=== PATIENT | female | born 1950 | race Caucasian/White ===

== ENCOUNTER 2016-03-20 00:58 | Emergency (ER) | payer MEDICAID ==
[~2016-03-20] VITALS: Ht 147.3 cm; Wt 65.5 kg
[2016-03-20 01:16] VITALS: Ht 147.3 cm; Wt 65.5 kg
[2016-03-20] MEDS ORDERED: ALBUTEROL 0.5% (NEB) 2.5 MG/0.5 ML AMP INH STA (03:23)
[2016-03-20] MEDS ORDERED: SOD CHLORIDE 0.9% 1,000 ML IV STA (03:23)
[2016-03-20 03:52] LABS: BASOPHIL # 0.1 10^3/ul (0.0-0.1); BASOPHILS % 0.7 % (0.0-2.0); EOSINOPHILS # 0.6 10^3/ul (0.0-0.5); EOSINOPHILS % 5.7 % (0.0-7.0); HEMATOCRIT 41.3 % (37.0-47.0); HEMOGLOBIN 13.4 g/dl (12.0-16.0); LYMPHOCYTES # 4.1 10^3/ul (0.8-2.9); LYMPHOCYTES % 36.6 % (15.0-51.0); MEAN CORPUSCULAR HEMOGLOBIN 29.1 pg (29.0-33.0); MEAN CORPUSCULAR HGB CONC 32.4 g/dl (32.0-37.0); MEAN CORPUSCULAR VOLUME 89.8 fl (82.0-101.0); MEAN PLATELET VOLUME 11.1 fl (7.4-10.4); MONOCYTE # 0.8 10^3/ul (0.3-0.9); NEUTROPHIL # 5.5 10^3/ul (1.6-7.5); NEUTROPHILS % 49.3 % (39.0-77.0); PLATELET COUNT 289 10^3/UL (140-415); RED CELL DISTRIBUTION WIDTH 13.2 % (11.5-14.5); WHITE BLOOD COUNT 11.1 10^3/ul (4.8-10.8)
[2016-03-20 04:10] LABS: ALBUMIN 3.6 g/dl (3.3-4.9); CHLORIDE 105 mmol/L (97-110)
[2016-03-20 04:11] LABS: POTASSIUM 4.2 mmol/L (3.5-5.1); SODIUM 145 mmol/L (135-144)
[2016-03-20 04:13] LABS: ALKALINE PHOSPHATASE 199 IU/L (42-121); ANION GAP 18 (8-16); ASPARTATE AMINO TRANSFERASE 27 IU/L (15-46); BILIRUBIN,INDIRECT 0.1 mg/dl (0-1.1); BILIRUBIN,TOTAL 0.1 mg/dl (0.2-1.3); BLOOD UREA NITROGEN 17 mg/dl (7-20); CARBON DIOXIDE 26 mmol/L (21-31); CREATININE 0.74 mg/dl (0.44-1.00); TOTAL PROTEIN 7.6 g/dl (6.1-8.1)
[2016-03-20 04:14] LABS: ALANINE AMINOTRANSFERASE 39 IU/L (13-69); CALCIUM 9.1 mg/dl (8.4-10.2); GLUCOSE 234 mg/dl (70-220)
[2016-03-20] MEDS ORDERED: CEFTRIAXONE 1 GM/50 ML (PMX) 50 ML IVPB ONE (04:30)
[2016-03-20] MEDS ORDERED: AZITHROMYCIN 500MG/NS (PMX) 250 ML IVPB ONE (04:30)
[2016-03-20 04:31] LABS: TROPONIN-I < 0.012 ng/ml (0.00-0.12)
[2016-03-20] MEDS ORDERED: ALBU8.5H3 INH (05:00)
[2016-03-20] MEDS ORDERED: AZIT500T5 PO (05:00)
[2016-03-20] MEDS ORDERED: IBUP400T22 PO (05:00)
--- NOTE | 2016-03-20 05:04 | ERD ---
ER Documentation Chief Complaint Date/Time DATE: 03/20/16 TIME: 05:03 Chief Complaint COUGH X 1 WEEK. WORSE TODAY, SEEN PMD TODAY FOR SAME HPI 65-year-old woman brought in by daughter with complaints of cough 1 week. She has had tactile fevers as well no chest pain, no calf or leg swelling, no vomiting or diarrhea, no recent antibiotic use, no headache or blurry vision, no recent travel or sick contacts. ROS All systems reviewed and are negative except as per history of present illness. Medications Home Meds Active Scripts Albuterol Sulfate* (Proair HFA*) 8.5 Gm Hfa.aer.ad, 2 PUFF INH Q6H Y for COUGH, #1 INHALER Prov:DEBBIE VILLASENOR MD 03/20/16 Ibuprofen* (Ibuprofen*) 400 Mg Tablet, 400 MG PO TID for FEVER, #30 TAB Prov:DEBBIE VILLASENOR MD 03/20/16 Azithromycin* (Azithromycin*) 500 Mg Tablet, 500 MG PO DAILY, #6 TAB Prov:DEBBIE VILLASENOR MD 03/20/16 Allergies Allergies: Coded Allergies: No Known Drug Allergies (Verified Allergy, Unknown, 03/20/16) PMhx/Soc Hypertension History of Surgery: Yes (uterus removed) Anesthesia Reaction: No Hx Neurological Disorder: No Hx Respiratory Disorders: No Hx Cardiac Disorders: Yes (HTN, high cholesterol) Hx Psychiatric Problems: No Hx Miscellaneous Medical Probl: Yes (DM type 2) Hx Alcohol Use: No Hx Substance Use: No Hx Tobacco Use: No Smoking Status: Never smoker FmHx Family History: No diabetes Physical Exam Vitals Vital Signs Date Time Temp Pulse Resp B/P Pulse Ox O2 Delivery O2 Flow Rate FiO2 03/20/16 06:04 104 21 124/59 94 Room Air 03/20/16 03:35 87 22 100 21 03/20/16 02:44 83 22 156/71 97 Room Air 03/20/16 01:16 98.4 85 20 185/81 96 Physical Exam GENERAL: Well-developed, well-nourished, well-hydrated, in no apparent distress , looks nontoxic in appearance HEENT: Moist mucous membranes, positive nasal congestion, pink conjunctiva, no cervical spine tenderness or step-off deformities, no goiter, no jaundice or icterus, extraocular movements intact without pain. No submandibular induration , and no pharyngeal erythema NEURO: Alert and oriented 3, cranial nerves II through XII intact bilaterally, pupils equal round reactive to light, no focal deficits or facial asymmetry, sensation intact distally Strength 5/5 in upper and lower extremities bilaterally CARDIAC: Regular rate and rhythm, no murmurs rubs or gallops LUNGS: Clear bilaterally no wheezing crackles or stridor ABDOMEN: Soft nontender, no guarding, no rigidity, no rebound, no psoas sign no obturator sign. Normoactive bowel sounds SKIN: Warm and dry to touch, no abrasions, contusions, or hematomas, no lacerations, no ecchymosis, no target lesions, and without ulcers EXTREMITIES: No clubbing cyanosis or edema, calves are bilaterally symmetrical, no Homans sign, no popliteal cord sign. Distal pulses equal and bilateral PSYCH: Normal affect without agitation or irritability Result Diagram: 03/20/1625603/20/167 Results 24 hrs Laboratory Tests Test 03/20/16 02:57 Alanine Aminotransferase (ALT/SGPT) 39IU/L Albumin 3.6g/dl Albumin/Globulin Ratio 0.90 Alkaline Phosphatase 199IU/L Anion Gap 18 Aspartate Amino Transf (AST/SGOT) 27IU/L Basophils # 0.110^3/ul Basophils % 0.7% Blood Urea Nitrogen 17mg/dl Calcium Level 9.1mg/dl Carbon Dioxide Level 26mmol/L Chloride Level 105mmol/L Creatinine 0.74mg/dl Direct Bilirubin 0.00mg/dl Eosinophils # 0.610^3/ul Eosinophils % 5.7% Globulin 4.00g/dl Glucose Level 234mg/dl Hematocrit 41.3% Hemoglobin 13.4g/dl Indirect Bilirubin 0.1mg/dl Lipase 74U/L Lymphocytes # 4.110^3/ul Lymphocytes % 36.6% Mean Corpuscular Hemoglobin 29.1pg Mean Corpuscular Hemoglobin Concent 32.4g/dl Mean Corpuscular Volume 89.8fl Mean Platelet Volume 11.1fl Monocytes # 0.810^3/ul Monocytes % 7.0% Neutrophils # 5.510^3/ul Neutrophils % 49.3% Nucleated Red Blood Cells # 0.010^3/ul Nucleated Red Blood Cells % 0.0/100WBC Platelet Count 19792^3/UL Potassium Level 4.2mmol/L Red Blood Count 4.6010^6/ul Red Cell Distribution Width 13.2% Sodium Level 145mmol/L Total Bilirubin 0.1mg/dl Total Protein 7.6g/dl Troponin I < 0.012ng/ml White Blood Count 11.110^3/ul Current Medications Medications (Trade) Dose Ordered Sig/Carla Route PRN Reason Start Time Stop Time Status Last Admin Dose Admin Albuterol 10 mg 10 mg ONCE STAT INH 03/20/16 03:23 03/20/16 03:24 03/20/16 03:55 Sodium Chloride 1,000 ml @ 1,000 mls/hr Q1H STAT IV 03/20/16 03:23 03/20/16 04:22 03/20/16 03:51 Ceftriaxone Sodium 50 ml @ 100 mls/hr ONCE ONCE IVPB 03/20/16 04:30 03/20/16 04:59 03/20/16 04:26 Azithromycin (Zithromax 500mg/ NS (Pmx)) 250 ml @ 250 mls/hr ONCE ONCE IVPB 03/20/16 04:30 03/20/16 05:29 03/20/16 04:40 Procedures/MDM IV line was established patient was placed on front desk monitor rhythm strip revealed a sinus rhythm at about 80 bpm with upright P and T waves. Patient was afebrile. EKG performed, read by me: 85 bpm, normal sinus rhythm, normal axis, no acute ST segment changes, narrow QRS complex, with good R-wave progression in precordial leads. I administered 1 L normal saline intravenously and albuterol 10 mg via nebulizer for cough with good response. Also administered ceftriaxone 1 g IV and azithromycin 500 mg IV. One view chest x-ray performed, read by me revealed cardiomegaly and a left lower lobe infiltrate, no pneumothorax, no end of the diaphragm. CBC and electrolytes were normal, liver function tests were normal, troponin was negative. CURB 65 Severity Score = 0. Placing the patient in a low risk group with a 30 day mortality rate of about 0.6. Therefore outpatient management is recommended. Differential diagnoses considered, included but not limited to acute coronary syndrome, pulmonary embolism, aortic dissection, abdominal aortic aneurysm, sepsis, stroke, meningitis, encephalitis, pneumonia, appendicitis, cholecystitis , bowel obstruction, pyelonephritis, nephrolithiasis, cystitis, as well as metabolic, hematologic, and electrolyte abnormalities. As well as abscess, cellulitis, fractures, and dislocations. Patient feels much better at this time, and vital signs are normal, symptoms have improved. I did give strict instructions to return to the ED if symptoms continue or worsen, patient will otherwise follow-up with primary care physician. Patient understood instructions and agreed to plan. Departure Diagnosis: Primary Impression: Pneumonia Pneumonia type: due to unspecified organism Laterality: left Lung location : lower lobe of lung Qualified Code: J18.9 - Pneumonia of left lower lobe due to infectious organism Condition: Good Patient Instructions: Pneumonia (Adult) DEBBIE VILLASENOR MD Mar 20, 2016 05:04
--- NOTE | 2016-03-20 05:26 | RADRPT ---
PROCEDURE: XR Chest. CLINICAL INDICATION: Abdominal Pain TECHNIQUE: Portable single view of the chest COMPARISON: None. FINDINGS: Shallow lung inflation accentuates the heart size but there is moderate enlargement of the cardioper icardial silhouette. Increased biapical density may in part be due to positioning. No focal consol idation or pleural effusion is seen. Mild pulmonary vascular congestion. IMPRESSION: Enlarged cardiopericardial silhouette. Increased opacity at the lung apices may in part be due to p ositioning. PA and lateral views are suggested when the patient is able to have this done. RPTAT: [facility] Physician Brionna Date Time Electronically viewed and signed by Namita Medeiros Physician on 03/20/2016 05:26 NITIN/
[2016-03-20 06:04] VITALS: BP 124/59; PULSE 104; RESP 21
== END 2016-03-20 06:04 | disposition home or self-care (01) ==
LOC: E/R 00:58
DX: J18.9 Pneumonia, unspecified organism (principal); I10 Essential (primary) hypertension; E11.9 Type 2 diabetes mellitus without complications
CPT/HCPCS: 71010; 80053; 83690; 84484; 85025; 87400; 94644; J0456; J0696; J7030; Z7610; 36415; 93005; 96374; 96375

== ENCOUNTER 2017-11-15 18:09 | Emergency (ER) | END 2017-11-16 00:22 | disposition home or self-care (01) ==

== ENCOUNTER 2017-11-17 00:23 | Emergency (ER) | END 2017-11-17 07:35 | disposition home or self-care (01) ==

== ENCOUNTER 2017-12-11 20:28 | Emergency (ER) | END 2017-12-12 00:14 | disposition home or self-care (01) ==

== ENCOUNTER 2018-07-13 22:14 | Emergency (ER) | payer MEDICAID, OTHER ==
[~2018-07-13] VITALS: Wt 64.5 kg
[~2018-07-13 22:14] MED LIST: ACYC800T5 PO; CYCL10TA7 PO; IBUP-1561 PO; PRED20TA PO
[2018-07-13 22:39] VITALS: PULSE 87; RESP 18
[2018-07-14] MEDS ORDERED: KETOROLAC 15 MG INJ IM STA (01:01)
[2018-07-14] MEDS ORDERED: IBUP-1561 PO (01:12)
[2018-07-14] MEDS ORDERED: AMOX500C2 PO (01:12)
[2018-07-14] MEDS ORDERED: AMOXICILLIN 500 MG CAP PO ONE (01:30)
[2018-07-14 01:36] VITALS: BP 152/87
--- NOTE | 2018-07-14 03:55 | ERD ---
ER Documentation Chief Complaint Chief Complaint left lower toothache x 2 weeks HPI 67-year-old female presenting to the emergency department complaining of 9/10, constant, left lower molar pain for the past 10 days. She denies any fevers, chills, facial swelling, facial redness, or other symptoms. She has not been able to follow-up with her dentist. No other symptoms reported currently. ROS All systems reviewed and are negative except as per history of present illness. Medications Home Meds Active Scripts Ibuprofen* (Motrin*) 400 Mg Tab, 400 MG PO Q6, #30 TAB Prov:COLLEEN MENDOZA PA-C 07/14/18 Amoxicillin* (Amoxicillin*) 500 Mg Cap, 500 MG PO TID for 10 Days, CAP Prov:COLLEEN MENDOZA PA-C 07/14/18 Prednisone* (Prednisone*) 20 Mg Tab, 60 MG PO DAILY for 5 Days, TAB Prov:ELGIN SILVESTRE DO 11/17/17 Acyclovir* (Zovirax*) 800 Mg Tablet, 800 MG PO 5 TIMES DAILY for 7 Days, TAB Prov:ELGIN SILVESTRE DO 11/17/17 Cyclobenzaprine Hcl* (Cyclobenzaprine Hcl*) 10 Mg Tablet, 10 MG PO TID, #15 TAB Prov:COLLEEN MENDOZA PA-C 11/15/17 Ibuprofen* (Motrin*) 400 Mg Tab, 400 MG PO Q6, #30 TAB Prov:COLLEEN MENDOZA PA-C 11/15/17 Allergies Allergies: Coded Allergies: No Known Drug Allergies (Verified Allergy, Unknown, 03/20/16) PMhx/Soc History of Surgery: No Anesthesia Reaction: No Hx Neurological Disorder: Yes (stroke?) Hx Respiratory Disorders: No Hx Cardiac Disorders: Yes (HTN) Hx Psychiatric Problems: No Hx Miscellaneous Medical Probl: No Hx Alcohol Use: No Hx Substance Use: No Hx Tobacco Use: No Smoking Status: Never smoker FmHx Family History: No diabetes Physical Exam Vitals Vital Signs Date Temp Pulse Resp B/P (MAP) Pulse Ox O2 O2 Flow FiO2 Time Delivery Rate 07/14/18 152/87 01:36 (108) 07/13/18 97.8 87 18 170/79 97 22:39 (109) Physical Exam Const: No acute distress Head: Atraumatic Eyes: Normal Conjunctiva ENT: Normal External Ears, Nose and Mouth. Probable early dental abscess noted to the left lower molar region with associated tenderness to palpation. Neck: Full range of motion. No meningismus. Resp: Clear to auscultation bilaterally Cardio: Regular rate and rhythm, no murmurs Skin: No petechiae or rashes Ext: No cyanosis, or edema Neur: Awake and alert Psych: Normal Mood and Affect Results 24 hrs Current Medications Medications Dose Sig/Carla Start Time Status Last (Trade) Ordered Route PRN Stop Time Admin Dose Reason Admin Amoxicillin 500 mg ONCE ONCE 07/14/18 DC 07/14/18 PO 01:30 07/14/18 01:14 (Amoxicillin) 01:31 Ketorolac 15 mg ONCE STAT 07/14/18 DC 07/14/18 Tromethamine IM 01:01 07/14/18 01:11 (Toradol) 01:03 Procedures/MDM 67-year-old female presenting with signs and symptoms most consistent with probable early dental abscess. No evidence of sepsis or facial cellulitis or Rupert's angina or other emergencies. Patient will be treated as an outpatient with amoxicillin and ibuprofen. She is otherwise stable for discharge and advised to have 24 to 48-hour follow-up with a dentist and return here sooner for any new or worsening or concerning symptoms. Patient's blood pressure was elevated (>120/80) but appears stable without evidence of hypertension emergency or urgency. The patient is to follow-up and pursue outpatient monitoring and therapy with their primary care physician within 1 week and return immediately if they have any new, worsening, or concerning symptoms. Departure Diagnosis: Primary Impression: Toothache Condition: Fair Patient Instructions: Dental Pain Referrals: [facility] (PCP) [facility] ([facility] walk in clinic) Additional Instructions: Specialist:Usted tiene chilo condicin mdica que requiere que jeremy a un especialista dentro de los prximos 1-2 lam.POR FAVOR,CON GREEN SEGUIMIENTO DE PRIMARIA PHSICIAN refferal. SI USTED NO TIENE UN MDICO GENERAL Y / O USTED NO PUEDE PAGAR jose a un mdico,los siguientes main RECURSOS sido suministrado a usted. ES GREEN RESPONSABILIDAD PARA SER VISTOS POR EL ESPECIALISTA: DENTISHOLLIE MENDOZACOLLEEN J PA-C Jul 14, 2018 03:55
== END 2018-07-14 01:37 | disposition home or self-care (01) ==
LOC: FTE 22:14
DX: K08.89 Other specified disorders of teeth and supporting structures (principal); I10 Essential (primary) hypertension; Z86.73 Personal history of transient ischemic attack (TIA), and cerebral infarction without residual deficits
CPT/HCPCS: 96372; J1885; Z7502; Z7610

== ENCOUNTER 2018-09-26 21:43 | Emergency (ER) | payer MEDICAID ==
[~2018-09-26] VITALS: Ht 152.4 cm; Wt 64.1 kg
[~2018-09-26 21:43] MED LIST changes: +AMOX500C2 PO; +IBUP-1542 PO; +OMEP40CA6 PO; +ONDA4TAB14 PO
[2018-09-26 21:54] VITALS: Ht 152.4 cm; Wt 64.1 kg
[2018-09-27] MEDS ORDERED: HYDROCODONE/APAP (10/325) TAB PO ONE (01:00)
[2018-09-27] MEDS ORDERED: ONDANSETRON (ODT) 4 MG TAB ODT STA (02:52)
[2018-09-27] MEDS ORDERED: NICARDipine HCL 30 MG CAPSULE PO ONE (04:00)
[2018-09-27] MEDS ORDERED: LORAZEPAM 1 MG TAB PO ONE (05:00)
[2018-09-27] MEDS ORDERED: METOCLOPRAMIDE 10 MG TAB PO ONE (05:00)
[2018-09-27 06:04] VITALS: BP 167/70; PULSE 73; RESP 18
== END 2018-09-27 06:04 | disposition home or self-care (01) ==
LOC: FTE 21:43
DX: S20.212A Contusion of left front wall of thorax, initial encounter (principal); I10 Essential (primary) hypertension; W01.0XXA Fall on same level from slipping, tripping and stumbling without subsequent striking against object, initial encounter; Y92.410 Unspecified street and highway as the place of occurrence of the external cause
CPT/HCPCS: 70450; 71110; 93005; Z7502; Z7610